=== PATIENT | female | born 1960 | race Caucasian/White ===

== ENCOUNTER 2023-01-19 16:55 | Emergency (ER) | payer OTHER ==
--- NOTE | 2023-01-19 16:58 | ERPHSYRPT ---
- History of Present Illness Time Seen by Provider: 01/19/23 16:58 Historian: patient Exam Limitations: no limitations Physician History: This is a 62-year-old obese white female patient of Dr. Hoffman who presents with right lower quadrant abdominal pain that is been present and worsening since yesterday (01/18/2023). Patient still has her appendix in place. She de nies chest pain. She denies shortness of breath. Patient has history of hyperlipidemia, gastroesophageal reflux disease, hypertension, hypothyroidism, anxiety/depression, and COPD. Patient has no urinary tract infection symptoms. Timing/Duration: yesterday Activities at Onset: none Abdominal Pain Onset Location: RLQ Pain Radiation: no radiation Severity of Pain-Max: mild (To moderate) Severity of Pain-Current: mild (To moderate) Associated Symptoms: denies symptoms Previous symptoms: no prior history, no recent treatment Allergies/Adverse Reactions: aspirin Allergy (Verified 01/19/23 17:22) doxycycline Allergy (Verified 01/19/23 17:22) Tetracyclines Allergy (Verified 01/19/23 17:22) vancomycin Allergy (Verified 01/19/23 17:22) Home Medications: Buspirone HCl 5 mg [Buspar 5 mg] 5 mg PO TID 01/19/23 [History] Cetirizine HCl 10 mg PO DAILY 01/19/23 [History] Gabapentin [Neurontin ] 300 mg PO TID 01/19/23 [History] Levothyroxine Sodium 150 mcg PO DAILY 01/19/23 [History] Losartan/Hydrochlorothiazide [Losartan-Hctz 100-12.5 mg Tab] 1 tab PO DAILY 01/19/23 [History] Metoprolol Succinate 50 mg [Toprol Xl 50 MG] 50 mg PO DAILY 01/19/23 [History] Montelukast Sodium 10 mg [Singulair 10 MG] 10 mg PO DAILY 01/19/23 [History] Omeprazole 20 mg PO DAILY 01/19/23 [History] Sertraline HCl 50 mg [Zoloft 50 mg Tablet] 50 mg PO DAILY 01/19/23 [History] Simvastatin 40 mg PO DAILY 01/19/23 [History] Tizanidine HCl 4 mg [Zanaflex 4 MG] 4 mg PO TID 01/19/23 [History] Travel Risk - International Travel Have you traveled outside of the country in past 3 weeks: No - Coronavirus Screening Are you exhibiting any of the following symptoms?: No Close contact with a COVID-19 positive Pt in past 14-21 Days: No - Review of Systems Constitutional: No Symptoms Eyes: No Symptoms Ears, Nose, & Throat: No Symptoms Respiratory: No Symptoms Cardiac: No Symptoms Abdominal/Gastrointestinal: Abdominal Pain (Right lower quadrant), No Nausea, No Vomiting, No Diarrhea, No Constipation Genitourinary Symptoms: No Symptoms Musculoskeletal: No Symptoms Skin: No Symptoms Neurological: No Symptoms Psychological: No Symptoms Endocrine: No Symptoms Hematologic/Lymphatic: No Symptoms Immunological/Allergic: No Symptoms All Other Systems: Reviewed and Negative - Past Medical History Pertinent Past Medical History: Yes - Past Surgical History Past Surgical History: Yes - Nursing Vital Signs Nursing Vital Signs: Initial Vital Signs Temperature 98.4 F 01/19/23 17:04 Pulse Rate 62 01/19/23 17:04 Blood Pressure 150/99 01/19/23 17:04 O2 Sat by Pulse Oximetry 99 01/19/23 17:04 Pain Scale Pain Intensity 9 - Physical Exam General Appearance: no apparent distress, alert, anxiety, obese Eye Exam: PERRL/EOMI, eyes nml inspection Ears, Nose, Throat Exam: normal ENT inspection, moist mucous membranes Neck Exam: normal inspection, non-tender, supple, full range of motion Respiratory Exam: normal breath sounds, lungs clear, airway intact, No chest te nderness, No respiratory distress Cardiovascular Exam: regular rate/rhythm, normal heart sounds, normal peripheral pulses Gastrointestinal/Abdomen Exam: soft, normal bowel sounds, tenderness (Right lower quadrant to palpation), guarding (Right lower quadrant to palpation), No rebound Pelvic Exam: not done Rectal Exam: not done Back Exam: normal inspection, normal range of motion, No CVA tenderness, No vertebral tenderness Extremity Exam: normal inspection, normal range of motion, pelvis stable Neurologic Exam: alert, oriented x 3, cooperative, illuminating engineer II-XII nml as tested, normal mood/affect, nml cerebellar function, nml station & gait, sensation nml Skin Exam: normal color, warm, dry Lymphatic Exam: No adenopathy SpO2 Interpretation: normal O2 Delivery: Room Air - Course Nursing assessment & vital signs reviewed: Yes Ordered Tests: Active Orders 24 hr Category Date Time Status IV Insertion STAT Care 01/19/23 17:32 Active ABDOMEN AND PELVIS W/0 CONTRAS [CT] Stat Exams 01/19/23 17:33 Taken AMYLASE Stat Lab 01/19/23 17:15 Completed CBC W DIFF Stat Lab 01/19/23 17:15 Completed CMP Stat Lab 01/19/23 17:15 Completed LIPASE Stat Lab 01/19/23 17:15 Completed UA W/RFX UR CULTURE Stat Lab 01/19/23 17:49 Completed Medication Summary Discontinued Medications Generic Name Dose Route Start Last Admin Trade Name Freq PRN Reason Stop Dose Admin Hydromorphone HCl 1 mg 01/19/23 17:32 01/19/23 17:42 Hydromorphone 1 Mg/1ml Inj IV 01/19/23 17:33 1 mg STAT ONE Administration Hydromorphone HCl Confirm 01/19/23 17:39 Hydromorphone 1 Mg/1ml Inj Administered 01/19/23 17:40 Dose 1 mg .ROUTE .STK-MED ONE Sodium Chloride 1,000 mls @ 999 mls/hr 01/19/23 17:32 01/19/23 17:42 Sodium Chloride 0.9% 1000 Ml IV 01/19/23 18:32 999 mls/hr .Q1H1M STA Administration Sodium Chloride Confirm 01/19/23 17:39 Sodium Chloride 0.9% 1000 Ml Administered 01/19/23 17:40 Dose 1,000 mls @ ud .ROUTE .STK-MED ONE Ondansetron HCl 4 mg 01/19/23 17:32 01/19/23 17:42 Ondansetron Hcl 4 Mg/2 Ml Vial IV 01/19/23 17:33 4 mg STAT ONE Administration Ondansetron HCl Confirm 01/19/23 17:39 Ondansetron Hcl 4 Mg/2 Ml Vial Administered 01/19/23 17:40 Dose 4 mg .ROUTE .STK-MED ONE Lab/Rad Data: Laboratory Result Diagrams 01/19/23 17:15 01/19/23 17:15 Laboratory Results 01/19/23 01/19/23 01/19/23 Range/Units 17:49 17:15 17:15 WBC 8.3 (4.0-10.5) x10^3/uL RBC 4.43 (4.1-5.4) x10^6/uL Hgb 11.7 L (12.0-16.0) g/dL Hct 39.3 (35-47) % MCV 88.7 (78-100) fL MCH 26.4 (26-32) pg MCHC 29.8 L (32-36) g/dL RDW 16.7 H (11.5-14.0) % Plt Count 217 (150-450) x10^3/uL MPV 9.9 (7.5-11.0) fL Gran % 63.0 (36.0-66.0) % Immature Gran % (Auto) 0.6 H (0.00-0.4) % Nucleat RBC Rel Count 0.0 (0.00-0.1) % Eos # (Auto) 0.09 (0-0.5) x10^3/uL Immature Gran # (Auto) 0.05 H (0.00-0.03) x10^3u/L Absolute Lymphs (auto) 2.12 (1.0-4.6) x10^3/uL Absolute Monos (auto) 0.75 (0.0-1.3) x10^3/uL Absolute Nucleated RBC 0.00 (0.00-0.01) x10^3u/L Lymphocytes % 25.7 (24.0-44.0) % Monocytes % 9.1 (0.0-12.0) % Eosinophils % 1.1 (0.00-5.0) % Basophils % 0.5 (0.0-0.4) % Absolute Granulocytes 5.20 (1.4-6.9) x10^3/uL Basophils # 0.04 (0-0.4) x10^3/uL Sodium 135 L (137-145) mmol/L Potassium 3.4 L (3.5-5.1) mmol/L Chloride 103 (98-107) mmol/L Carbon Dioxide 30 (22-30) mmol/L Anion Gap 6.1 (5-15) MEQ/L BUN 8 (7-17) mg/dL Creatinine 0.56 (0.52-1.04) mg/dL Estimated GFR 101.9 ML/MIN Glucose 120 H (74-106) mg/dL Calcium 8.9 (8.4-10.2) mg/dL Total Bilirubin 0.40 (0.2-1.3) mg/dL AST 26 (14-36) U/L ALT 21 (0-35) U/L Alkaline Phosphatase 107 (38-126) U/L Serum Total Protein 7.2 (6.3-8.2) g/dL Albumin 3.8 (3.5-5.0) g/dL Amylase 56 (30-110) U/L Lipase 95 (23-300) U/L Urine Color Yellow (Yellow) Urine Appearance Clear (Clear) Urine pH 7.0 (4.6-8.0) Ur Specific [place] <=1.005 (1.005-1.030) Urine Protein Negative (Negative) Urine Glucose (UA) Negative (Negative) mg/dL Urine Ketones Negative (Negative) Urine Blood Negative (Negative) Urine Nitrite Negative (Negative) Urine Bilirubin Negative (Negative) Urine Urobilinogen 0.2 (0.2) mg/dL Ur Leukocyte Esterase Negative (Negative) U Hyaline Cast (Auto) NONE SEEN (0-2) /LPF Urine Microscopic RBC 0-2 (0-5) /HPF Urine Microscopic WBC 0-2 (0-5) /HPF Ur Epithelial Cells None Seen (None Seen) /HPF Urine Bacteria None Seen (None Seen) /HPF Urine Culture Reflexed NO (NO) - Progress Progress: improved, pain not gone completely Progress Note: 01/19/23 18:52 This patient's medical issue is 1 of moderate complexity. Level complex in the workup performed is based on review the patient's past medical history, review the patient's medication list, review the patient drug allergy list, history present illness and physical findings on examination. The workup in this charlette ent includes placement of an intravenous line, infusion of normal saline solution, infusion of intravenous Zofran and Dilaudid, CBC, CMP, amylase, lipase, urinalysis, CT scan of the abdomen pelvis without contrast 01/19/23 18:55 I interpreted the patient's laboratory study results. There is no evidence of any acute, emergent findings on the patient's laboratory study results. CT scan of the abdomen pelvis without contrast was interpreted by the radiologist. I reviewed the impression. The impression is no comparison films available. There is normal appendix. There is mild, circumferential cecal wall thickening with mild stranding present. Query focal colitis. No evidence of free fluid or free air. Counseled pt/family regarding: lab results, diagnosis, need for follow-up, rad results Medical Desision Making - Diagnostic Testing Diagnostic test were ordered, analyzed, and reviewed by me: Yes Radiological Interpretation: Reviewed by me, Teleradiologist Report - Risk of complications The pt has a mod risk of morbidity or mortality based on: Need for prescription drug management - Departure Departure Disposition: Home Clinical Impression: Colitis Condition: Stable Critical Care Time: No Referrals: CARLOS ALBERTO HOFFMAN DO [Primary Care Provider] - Follow up/PCP as directed Additional Instructions: Drink plenty of clear liquids. Do not advance her diet until you are taking clear liquids and well. Take your antibiotics as prescribed. Follow-up with y our primary care provider for further evaluation and management including possible referral to GI specialist in the near future for colonoscopy if indicated. Prescriptions: Hydrocodone/APAP 5/325 [[place] 5/325 mg] 1 each PO Q8H PRN PRN #6 tablet MDD 3 PRN Reason: Pain Ciprofloxacin [Cipro 500 MG] 500 mg PO BID #14 tablet Metronidazole 500 mg [Flagyl 500 MG] 500 mg PO TID #21 tablet
[2023-01-19 17:21] VITALS: TEMP 98.4
[2023-01-19] MEDS ORDERED: Sodium Chloride 0.9% 1000 ML 1,000 ML IV STA (17:32)
[2023-01-19] MEDS ORDERED: Zofran 4 MG/2 ML VIAL IV ONE (17:32)
[2023-01-19] MEDS ORDERED: Hydromorphone 1 mg/ml Injection IV ONE (17:32)
[2023-01-19] MEDS ORDERED: Zofran 4 MG/2 ML VIAL ONE (17:39)
[2023-01-19] MEDS ORDERED: Sodium Chloride 0.9% 1000 ML 1,000 ML ONE (17:39)
[2023-01-19] MEDS ORDERED: Hydromorphone 1 mg/ml Injection ONE (17:39)
[2023-01-19 17:42] LABS: BASOPHIL % 0.5 % (0.0-0.4); Basophil (Absolute #) 0.04 x10^3/uL (0-0.4); Eosinophil % 1.1 % (0.00-5.0); Eosinophil (Absolute #) 0.09 x10^3/uL (0-0.5); Hematocrit 39.3 % (35-47); Hemoglobin 11.7 g/dL (12.0-16.0); IMMATURE GRAN # 0.05 x10^3u/L (0.00-0.03); IMMATURE GRAN % 0.6 % (0.00-0.4); Lymphocyte (Absolute #) 2.12 x10^3/uL (1.0-4.6); Lymphocytes % 25.7 % (24.0-44.0); Mean Cell Volume 88.7 fL (78-100); Mean Corpuscular Hemoglobin 26.4 pg (26-32); Mean Corpuscular Hgb Concent. 29.8 g/dL (32-36); Mean Platelet Volume 9.9 fL (7.5-11.0); Monocyte (Absolute #) 0.75 x10^3/uL (0.0-1.3); Monocytes % 9.1 % (0.0-12.0); Platelet Count 217 x10^3/uL (150-450); Red Blood Count 4.43 x10^6/uL (4.1-5.4); Red Cell Distribution Width 16.7 % (11.5-14.0); White Blood Count 8.3 x10^3/uL (4.0-10.5)
[2023-01-19 17:45] LABS: ALBUMIN 3.8 g/dL (3.5-5.0); ANION GAP 6.1 MEQ/L (5-15); BILIRUBIN,TOTAL 0.4 mg/dL (0.2-1.3); Calcium 8.9 mg/dL (8.4-10.2); Creatinine 1 0.56 mg/dL (0.52-1.04); EST GLOMERULAR FILTRATION RATE 101.9 ML/MIN; Potassium 3.4 mmol/L (3.5-5.1); Total Protein 7.2 g/dL (6.3-8.2)
[2023-01-19 18:01] LABS: Appearance Clear (Clear); Bacteria None Seen /HPF (None Seen); Bilirubin Negative (Negative); Blood Negative (Negative); Epithelial Cells None Seen /HPF (None Seen); Glucose, Urine Negative (Negative); Hyaline Casts NONE SEEN /LPF (0-2); Ketones Negative (Negative); Leukocyte Esterase Negative (Negative); Nitrite Negative (Negative); Protein,Urine Dip Negative (Negative); RBC 0-2 /HPF (0-5); Specific Gravity <=1.005 (1.005-1.030); Urobilinogen 0.2 mg/dL (0.2); WBC 0-2 /HPF (0-5)
[2023-01-19 18:03] LABS: ADD URINE CULTURE? NO (NO)
[2023-01-19] MEDS ORDERED: Flagyl 500 MG PO ONE (18:54)
[2023-01-19] MEDS ORDERED: Levofloxacin 500 MG Tablet PO ONE (18:54)
[2023-01-19] MEDS ORDERED: Flagyl 500 MG ONE (18:58)
[2023-01-19] MEDS ORDERED: Levofloxacin 500 MG Tablet ONE (18:58)
[2023-01-19 19:06] VITALS: BP 130/74; PULSE 68; RESP 16; O2SAT 92
--- NOTE | 2023-01-20 08:38 | XRAY ---
Indication: Right lower quadrant pain. Multiple contiguous axial images obtained through the abdomen and pelvis without contrast. Comparison: None Lung bases clear with incidental tiny right base calcified granuloma. Heart not enlarged. Noncontrasted stomach and bowel loops appear nonobstructed with normal appendix. Cecum demonstrates mild sequential wall thickening with minimal stranding, possible colitis. Normal ileocecal junction. Incidental tiny splenic calcified granulomas and cholecystectomy clips. No free fluid/air. Remaining liver, pancreas, spleen, adrenal glands, kidneys, ureters, bladder, and uterus are unremarkable for noncontrast exam. Mild scattered aortoiliac calcifications without AAA. Osseous structures intact with osteopenia, mild/moderate degenerative changes throughout the spine, mild right hip degenerative arthropathy, and old proximal left femur fracture with 3 intact orthopedic screws. Impression: 1. Mild cecal circumferential wall thickening with minimal stranding. Rule out colitis. Malignancy not completely excluded. 2. Chronic findings including arteriosclerotic disease, chronic bony findings, and old granulomatous disease. 3. Remaining CT abdomen/pelvis without contrast exam is negative.
== END 2023-01-19 19:12 | disposition home or self-care (01) ==
LOC: ED 16:55
DX: K52.9 Noninfective gastroenteritis and colitis, unspecified (principal); R10.31 Right lower quadrant pain; E78.5 Hyperlipidemia, unspecified; I10 Essential (primary) hypertension; Z79.891 Long term (current) use of opiate analgesic; Z79.899 Other long term (current) drug therapy
CPT/HCPCS: 36000; 36415; 74176; 80053; 81001; 82150; 83690; 85025; 96374; 96375; 99284; J1170; J2405; A9270-GY

== ENCOUNTER 2023-12-07 08:52 | Day surgery (SDC) | payer MEDICARE, OTHER ==
[2023-12-07] MEDS ORDERED: Sodium Chloride 0.9(Preservative Free) 10 ML IJ ONE (08:53)
[2023-12-07] MEDS ORDERED: Depo-Medrol 40 MG/ML IM ONE (08:53)
[2023-12-07] MEDS ORDERED: LIDOCAINE HCL 1% AMPUL 5 ML IJ ONE (08:53)
[2023-12-07] MEDS ORDERED: DIPRIVAN 200 MG/20 ML IV ONE ×2 (09:53→10:08)
--- NOTE | 2023-12-07 11:46 | XRAY ---
Indication: Lumbar ADEEL. Intraoperative fluoroscopy provided for 28 seconds. 4 digital spot image submitted for interpretation demonstrates posterior needle tip projecting posterior to lumbosacral junction. Small amount of contrast injected for needle tip placement. Correlate with intraoperative findings/report.
--- NOTE | 2023-12-07 11:54 | XRAY ---
28 seconds of fluoroscopy was used in surgery for a lumbar ADEEL.
== END 2023-12-07 10:38 | disposition home or self-care (01) ==
LOC: SDC-PAIN 08:52
PROVIDERS: ATTEND Psychiatry & Neurology Pain Medicine
DX: M54.16 Radiculopathy, lumbar region (principal); E11.9 Type 2 diabetes mellitus without complications
CPT/HCPCS: 62323; 72100; 77003; 82947; J2704; Q9966